=== PATIENT | male | born 1990 | race Two or more races ===

== ENCOUNTER 2024-04-03 11:53 | Emergency (ER) | payer MEDICAID, SELFPAY ==
--- NOTE | 2024-04-03 12:26 | EDNOTE_ITS ---
ED Allergic Reaction RME/HPI General Chief complaint: Allergic Reaction Stated complaint: Bee sting, rash, itch, feels hot. Time Seen by Provider: 04/03/24 12:13 Source: patient Arrival date/time: 04/03/24 11:53 This is a 33-year-old male who presents to the emergency department for co mplaints ofBee sting x 2 hours with itiching, redness, rash. No complaints of respiratory issues, oral airway edema. Only complaints of cutaneous erythemic itchiness throughout body. Denies chest pain no nausea no vomiting no shortness of breath. Related Data Previous Rx's ?Medication ?Instructions ?Recorded albuterol sulfate 90 mcg/actuation 2 puff inhalation QID #18 grams 11/27/19 aerosol inhaler cetirizine 10 mg tablet (Zyrtec) 10 mg PO QDAY #30 tabs 11/27/19 albuterol sulfate 90 mcg/actuation 2 puff inhalation QID PRN 02/16/20 aerosol inhaler shortness of breath or wheezing #18 grams cetirizine 10 mg capsule (All Day 10 mg PO QDAY PRN allergy symptoms 04/03/24 Allergy (cetirizine)) #30 caps diphenhydramine HCl 25 mg capsule 25 mg PO TID PRN allergy symptoms 04/03/24 (Benadryl) #20 caps prednisone 50 mg tablet 50 mg PO QDAY 3 days #3 tabs 04/03/24 Allergies Allergy/AdvReac Type Severity Reaction Status Date / Time No Known Allergies Allergy Verified 02/15/20 21:19 Review of Systems Review of Systems Systems Reviewed: All systems reviewed, normal except as documented Narrative Review of Systems: Gen: No fever, no chills, no weight loss EYES: No discharge, no visual changes, no pain HEENT: No ear pain, no congestion, no sore throat PULM: No shortness of breath, no cough, no congestion CV: No chest pain, no dyspnea on exertion, no palpitations GI: No nausea, no vomiting, no diarrhea, no pain, no constipation : No frequency, no urgency, no dysuria Musc/skel: No joint pain, no back pain Skin: Erythemic body rash Psyc: No hallucinations, no depression Heme/Lymph: No easy bleeding or bruising tendencies Neuro: No weakness, no headache ED Exam Narrative Physical exam: general: Sittiing in Exam table in no acute distress, answering questions appropriately HENT: normocephalic, atraumatic, EOMI, PERRLA, moist mucous membranes Chest: chest wall is nontender Cardiac: regular rate and rhythm, normal S1 and S2, no murmurs, rubs, or gallops, capillary refill ?2 seconds Pulmonary: clear to auscultation bilaterally, no wheezing, crackles, or rhonchi Abdominal: active bowel sounds, soft, nontender, nondistended Neuro: A&OX3, CN II-XII intact, sensation grossly intact bilaterally in UE and LE. Skin: Urticaric/ hives lesions throughout body Ext: no lower extremity edema Course Quality Measures none Orders Category Date Time Status DiphenhydrAMINE INJ [Benadryl Inj] Med 04/03/24 12:26 Discontinued 50 mg IM X1 ONE Famotidine [Pepcid] Med 04/03/24 12:26 Discontinued 40 mg PO X1 ONE MethylPREDNISolone.* [SoluMEDROL Inj] Med 04/03/24 12:26 Discontinued 125 mg IM X1 ONE Vital Signs Vital signs: Vital Signs Temperature 98.0 F 04/03/24 12:31 Pulse Rate 85 04/03/24 12:31 Respiratory Rate 17 04/03/24 12:31 Blood Pressure 141/75 H 04/03/24 12:31 Pulse Oximetry (%) 100 04/03/24 12:31 Oxygen Delivery Method Room Air 04/03/24 12:31 Allergic Reaction MDM Narrative MDM Narrative:: Patient presents for rash and hives throughout body. Etiology is likely allergic reaction to bee sting. There is no evidence of anaphylaxis, airway compromise or angioedema and patient remained hemodynamically stable while observed in the ED. Patient is stable for discharge home. Patient to follow up with PMD in 2 days. Strict return to ED precautions given. Patient verbalized understanding Patient data External records reviewed:: [facility] previous records Clinical information provided by:: patient Social determinants that could affect healthcare access:: none Patient has the following chronic illnesses:: no How is presenting disease/condition affected by chronic disease/condition?: no chronic disease Evaluation data The following diagnostics were reviewed and interpreted by me:: other (specify) Lab and/or radiology exams considered but not ordered:: no Interpretation Summary: no Medications / Prescriptions Medications or Prescriptions considered but not ordered:: rx Medication administrations:: Medication Administration History Discontinued Medications Diphenhydramine HCl (Diphenhydramine Inj 50 Mg/Ml Vial) 50 mg IM X1 ONE Stop: 04/03/24 12:27 Last Admin: 04/03/24 12:32 Dose: 50 mg Documented By: JHONY Famotidine (Famotidine 20 Mg Tablet) 40 mg PO X1 ONE Stop: 04/03/24 12:27 Last Admin: 04/03/24 12:31 Dose: 40 mg Documented By: VG Methylprednisolone Sodium Succinate (Methylprednisolone Sod Succ 62.5 Mg/Ml 2ml Vial) 125 mg IM X1 ONE Stop: 04/03/24 12:27 Last Admin: 04/03/24 12:32 Dose: 125 mg Documented By: JHONY all medications administered and effective Consultations Consultation(s) initiated? (list below): No Diagnosis Differential Diagnosis allergic reaction: anaphylaxis, allergic reaction, contact dermatitis, adverse reaction to drug, viral enanthem and urticaria Most likely diagnosis given after review of the tests above:: bee sting, allergic reaction Admission Indicated Admission indicated?: not indicated Admission Request Was there a request for admission?: No Disposition Plan Disposition Plan: Discharge Discharge Attestation Discharge Attestation: The patient and all family members were given an opportunity to ask questions and understood the discharge instructions. Discharge instructions specifically effects, indications for sooner follow up or return to the emergency department, and the expected course of current diagnosis. Patient condition: Stable Discharge Plan Plan Patient Disposition: HOME (Self Care) Patient condition on transfer: Stable Prescriptions/Referrals Prescriptions/Med Rec: New All Day Allergy (cetirizine) 10 mg capsule 10 mg PO QDAY PRN (Reason: allergy symptoms) Qty: 30 0RF diphenhydramine HCl [Benadryl] 25 mg capsule 25 mg PO TID PRN (Reason: allergy symptoms) Qty: 20 0RF prednisone 50 mg tablet 50 mg PO QDAY 3 Days Qty: 3 0RF No Action albuterol sulfate 90 mcg/actuation HFA aerosol inhaler 2 puff IH QID Qty: 18 0RF cetirizine [Zyrtec] 10 mg tablet 10 mg PO QDAY Qty: 30 0RF albuterol sulfate 90 mcg/actuation HFA aerosol inhaler 2 puff IH QID PRN (Reason: shortness of breath or wheezing) Qty: 18 0RF Referrals: Matt Oconnor MD [Primary Care Provider] - In 1 week Problem List Clinical Impression: Allergic reaction, Accidental bee sting Patient/Caregiver Discharge Instructions Discharge Activity: as per physical therapy Education Materials: ED BEE STING General Allergic Rxn Additional Instructions: Please follow-up with your doctor. Take medication as directed. Return to the emergency department there is any worsening symptoms change in condition. Print Language: Romanian Stand Alone Forms: [facility]acy Award Info., Patient Portal Info Letter PA/PRODUCTION EDITOR Supervising Physician PA/PRODUCTION EDITOR Supervising Physician: Dr Salmon
[2024-04-03 12:31] VITALS: BP 141/75; PULSE 85; RESP 17; TEMP 36.7; O2SAT 100; BMI 29.2
[2024-04-03] MEDS: FAMOTIDINE 20 MG TABLET 40 MG PO (12:31)
[2024-04-03] MEDS: MethylPREDNISolone SOD SUCC 62.5 MG/ML 2ML VIAL 125 MG IM (12:32)
[2024-04-03] MEDS: DiphenhydrAMINE INJ 50 MG/ML VIAL IM (12:32)
== END 2024-04-03 15:38 | disposition home or self-care (01) ==
PROVIDERS: Emergency Provider Emergency Medicine; PCP Family Medicine
DX: T63.441A Toxic effect of venom of bees, accidental (unintentional), initial encounter (principal)
CPT/HCPCS: 96372; 99283; J1200; J2919; A9270